=== PATIENT | female | born 1950 | race Caucasian/White ===

== ENCOUNTER → 2017-03-03 14:46 | Outpatient (CLI) | payer MEDICARE ==
[2016-01-24 07:14] VITALS: BMI 21.8
[~2017-03-03 14:46] MED LIST: ATIVAN1 MG PO; CYCLOBENZAPRINE5 MG PO; FLINTSTONE1 TAB.CHEW PO
== END | disposition home or self-care (01) ==
LOC: D.CT 14:46
DX: J32.9 Chronic sinusitis, unspecified (principal)